=== PATIENT | female | born 1955 | race Caucasian/White ===

== ENCOUNTER 2016-12-07 17:46 | Emergency (ER) | payer OTHER ==
[2016-12-07 18:15] VITALS: BP 166/97
[2016-12-07] MEDS ORDERED: HYDROmorphone 1 MG/ML Syringe IM ONE (18:20)
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
[2016-12-07] MEDS ORDERED: Bacitracin Oint 1 GM U/D Packet TOP ONE (19:06)
--- NOTE | 2016-12-10 08:49 | CR ---
Right leg The tibia and fibula demonstrate normal alignment. There is no evidence for fracture. The soft tissu es are unremarkable. Impression: 1. Negative exam.
--- NOTE | 2016-12-10 08:50 | CR ---
Left femur There is mild joint space loss at the hip. The femur demonstrates normal alignment. There is no frac ture. Impression: 1. No acute post symmetric findings.
== END 2016-12-07 19:39 | disposition home or self-care (01) ==
LOC: JP.ED 17:46
DX: S80.12XA Contusion of left lower leg, initial encounter (principal); Z79.899 Other long term (current) drug therapy; V18.0XXA Pedal cycle driver injured in noncollision transport accident in nontraffic accident, initial encounter
CPT/HCPCS: 73552; 73590; 96372; 99284; J1170